=== PATIENT | male | born 1935 | race Caucasian/White ===

== ENCOUNTER 2017-03-16 16:27 | Emergency (ER) | payer OTHER ==
[~2017-03-16] VITALS: Ht 160 cm; Wt 90.7 kg
[2017-03-16] MEDS ORDERED: CAN'T RECALL (16:32)
--- NOTE | 2017-03-16 16:40 | NUR ---
PT CAME IN FOR GENERALIZED WEAKNESS WHILE WALKING FROM A GROCERY. DENIES KO. PT AAOX3. SEEN BY MD FOR EVAL. SAFETY AND COMFORT MEASURES PROVIDED. WILL MONITOR.
[2017-03-16 16:53] LABS: BASOPHILS % (AUTO) 0.4 % (0.0-2.0); EOSINOPHILS # (AUTO) 0.1 /CMM (0.0-0.7); EOSINOPHILS % (AUTO) 0.8 % (0.0-6.0); HEMATOCRIT 46 % (39-51); HEMOGLOBIN 14.9 g/dL (13.5-17.5); LYMPHOCYTES % (AUTO) 22.2 % (20.0-44.0); MEAN CORPUSCULAR HEMOGLOBIN 32 PG (26.0-33.0); MEAN CORPUSCULAR HGB CONC 33 g/dl (31.0-36.0); MEAN CORPUSCULAR VOLUME 99 fL (80-96); MONOCYTES # (AUTO) 0.8 /CMM (0.1-1.30); MONOCYTES % (AUTO) 8.7 % (2.0-12.0); NEUTROPHILS # (AUTO) 5.9 /CMM (1.8-8.9); NEUTROPHILS % (AUTO) 67.9 % (43.0-81.0); PLATELET COUNT (AUTO) 150 /CMM (150-450); RDW COEFFICIENT OF VARIATION 11.8 (11.5-15.0); RED BLOOD CELL COUNT(AUTO) 4.61 MIL/uL (4.5-6.0); WHITE BLOOD COUNT (AUTO) 8.8 K/uL (4.3-11.0)
[2017-03-16] MEDS ORDERED: IV NS 0.9% 1,000 ML BAG IV ONE (17:00)
[2017-03-16 17:03] LABS: CALCIUM, SERUM 8.5 mg/dL (8.5-10.1); CARBON DIOXIDE 25 mmol/L (21-32); CHLORIDE 105 mmol/L (98-107); CREATININE 1.4 mg/dL (0.6-1.3); GLUCOSE 114 mg/dL (74-106); POTASSIUM 3.3 mmol/L (3.5-5.1); SODIUM SERUM 139 mmol/L (136-145); UREA NITROGEN, BLOOD 16 mg/dL (7-18)
[2017-03-16] MEDS ORDERED: IV NS 0.9% 1,000 ML ONE (17:08)
[2017-03-16] MEDS ORDERED: IV SET PRIMARY PUMP SET 1 EA INFUS.SET MC ONE (17:08)
[2017-03-16 17:09] LABS: ALANINE AMINOTRANSFERASE 19 U/L (12-78); ALBUMIN 3.6 g/dL (3.4-5.0); ALKALINE PHOSPHATASE 81 U/L (46-116); ASPARTATE AMINOTRANSFERASE 25 U/L (15-37); BILIRUBIN,DIRECT 0.2 mg/dL (0.0-0.2); BILIRUBIN,TOTAL 0.9 mg/dL (0.2-1.0); TOTAL PROTEIN, SERUM 7.3 g/dL (6.4-8.2)
--- NOTE | 2017-03-16 17:10 | NUR ---
IV ACCESS STARTED. PT MEDICATED ORDERED.
[2017-03-16 17:11] LABS: TROPONIN I < 0.017 ng/mL (0.00-0.056)
--- NOTE | 2017-03-16 18:20 | NUR ---
IV removed. Catheter intact and site benign. Pressure and 4x4 applied to site. No bleeding noted.
--- NOTE | 2017-03-16 18:34 | NUR ---
Patient discharged to home in stable condition. Written and verbal after care instructions given. Patient verbalizes understanding of instruction.
[2017-03-16 18:46] VITALS: BP 127/71
== END 2017-03-16 18:46 | disposition home or self-care (01) ==
LOC: ER 16:28
DX: N28.9 Disorder of kidney and ureter, unspecified (principal); R42 Dizziness and giddiness; E78.00 Pure hypercholesterolemia, unspecified; I10 Essential (primary) hypertension; W18.30XA Fall on same level, unspecified, initial encounter; Y93.89 Activity, other specified; Y92.89 Other specified places as the place of occurrence of the external cause; Y99.8 Other external cause status
CPT/HCPCS: 36415; 71010; 80048; 80076; 84484; 85025; 93005; 96360; 99285; A4606; J7030; Z7610

== ENCOUNTER 2018-08-08 19:45 | Emergency (ER) | payer OTHER ==
[~2018-08-08] VITALS: Ht 172.7 cm; Wt 79.4 kg
[~2018-08-08 19:45] MED LIST: CAN'T RECALL
--- NOTE | 2018-08-08 20:30 | NUR ---
BIB [facility] FOR FLU LIKE SYMPTOMS X 8WEEKS REPORTED BY . PT AAOX2, VSS. DENIES CP, SOB, DIZZINESS, N/V/D, ABD PAIN OR ANY DISCOMFORT @ THIS TIME. PT SEEN & EVAL'D BY DR. MILLAN & WILL CONT TO MONITOR.
[2018-08-08 20:40] LABS: HEMATOCRIT 42 % (39-51); HEMOGLOBIN 14.1 g/dL (13.5-17.5); LYMPHOCYTES % (AUTO) 11.4 % (20.0-44.0); MEAN CORPUSCULAR HGB CONC 34 g/dl (31.0-36.0); MEAN CORPUSCULAR VOLUME 98 fL (80-96); PLATELET COUNT (AUTO) 79 /CMM (150-450); RDW COEFFICIENT OF VARIATION 12.7 (11.5-15.0); RED BLOOD CELL COUNT(AUTO) 4.26 MIL/uL (4.5-6.0); WHITE BLOOD COUNT (AUTO) 13.7 K/uL (4.3-11.0)
[2018-08-08 20:41] LABS: BASOPHILS # (AUTO) 0.3 /CMM (0.0-0.2); BASOPHILS % (AUTO) 2.5 % (0.0-2.0); CALCIUM, SERUM 9.6 mg/dL (8.5-10.1); CARBON DIOXIDE 29 mmol/L (21-32); CHLORIDE 102 mmol/L (98-107); EOSINOPHILS % (AUTO) 0.3 % (0.0-6.0); GLUCOSE 98 mg/dL (74-106); LYMPHOCYTES # (AUTO) 1.6 /CMM (0.8-4.8); MONOCYTES # (AUTO) 1.2 /CMM (0.1-1.30); MONOCYTES % (AUTO) 8.8 % (2.0-12.0); NEUTROPHILS # (AUTO) 10.6 /CMM (1.8-8.9); SODIUM SERUM 136 mmol/L (136-145); UREA NITROGEN, BLOOD 17 mg/dL (7-18)
[2018-08-08 20:44] LABS: INR 1.06 (0.85-1.15)
[2018-08-08 20:48] LABS: TROPONIN I < 0.017 ng/mL (0.00-0.056)
[2018-08-08 20:53] LABS: ALANINE AMINOTRANSFERASE 24 U/L (12-78); ALBUMIN 3.3 g/dL (3.4-5.0); ALKALINE PHOSPHATASE 82 U/L (46-116); ASPARTATE AMINOTRANSFERASE 28 U/L (15-37); B-TYPE NATRIURETIC PEPTIDE 346 PG/ML (0-125); BILIRUBIN,DIRECT 0.2 mg/dL (0.0-0.2); BILIRUBIN,TOTAL 0.8 mg/dL (0.2-1.0)
[2018-08-08 21:24] LABS: TOTAL PROTEIN, SERUM < 2.0 g/dL (6.4-8.2)
[2018-08-08 21:47] LABS: BAND % (MANUAL) 4 % (0.0-5.0); EOSINOPHILS % (MANUAL) 2 % (0-4); LYMPHOCYTES % (MANUAL) 8 % (16-48); MONOCYTES % (MANUAL) 5 % (0-11.0); NEUTROPHILS % (MANUAL) 81 (42-76)
--- NOTE | 2018-08-08 22:00 | NUR ---
URINE COLLECTED VIA I&O CATHETER, PT JOSE ALFREDO WELL. URINE SAMPLE SENT TO LAB.
[2018-08-08 22:13] LABS: APPEARANCE,URINE SL CLOUDY (CLEAR); BILIRUBIN,URINE NEGATIVE (NEGATIVE); BLOOD, URINE 2+ Ery/uL (NEGATIVE); COLOR,URINE YELLOW (YELLOW); KETONES,URINE NEGATIVE (NEGATIVE); LEUKOCYTE ESTERASE ,URINE 2+ (NEGATIVE); NITRITE, URINE POSITIVE (NEGATIVE); PROTEIN,URINE NEGATIVE (NEGATIVE); UGLUCOSE NEGATIVE (NEGATIVE); UROBILINOGEN,URINE 0.2 EU/dL (0.2)
[2018-08-08 22:22] LABS: BACTERIA,URINE Few /HPF (None Seen); RBC,URINE 21-50 /HPF (0-2); SQUAMOUS EPITHELIAL CELL,UR Few /HPF (None Seen)
--- NOTE | 2018-08-08 22:22 | NUR ---
PT ASLEEP, EASILY AWAKEN WITH VERBAL STIMULI. DENIES CP, SOB, DIZZINESS, N/V/D @ THIS TIME. @ BS & WILL CONT TO MONITOR.
--- NOTE | 2018-08-08 22:40 | NUR ---
CALLED [facility] SPOKE WITH DUKE , EXPECTING A CALL BACK FROM A [facility]
[2018-08-08] MEDS ORDERED: CEFTRIAXONE 1GM BAG (ER ONLY) 1 GM/50 ML PIGGYBACK IV ONE (23:00)
[2018-08-08] MEDS ORDERED: CEFTRIAXONE 1 G VIAL ONE (23:14)
--- NOTE | 2018-08-08 23:39 | NUR ---
RECEIVED REPORT FROM MILDRED LIMON FOR [facility] PT APPEARS COMFORTABLE.
--- NOTE | 2018-08-09 00:29 | NUR ---
CALLED LAB FOR PENDING LACTIC ACID. TO BE RESULTED IN 2 MINS.
--- NOTE | 2018-08-09 00:32 | NUR ---
INFORMED DR. MCGUIRE FROM [facility] OF LACTIC ACID RESULT
--- NOTE | 2018-08-09 01:05 | NUR ---
[facility] TRANSPORT TO [facility] DR. Rayna POSADAS [phone] ETA [phone]
--- NOTE | 2018-08-09 01:21 | NUR ---
REPORT GIVEN TO RYDE HONEY JAMES
[2018-08-09 02:00] VITALS: BP 158/73
--- NOTE | 2018-08-09 02:02 | NUR ---
REPORT GIVEN TO EMT FROM [facility] FOR [facility], PT AND PT AWARE OF TRANSFER, VSS, IV INTACT AND PATENT. NO S/S INFECTION OR INFILTRATION NOTED. PT WITH ALL PERSONAL BELONGINGS. PT TO BE TRASNFERRED TO [facility] VIA [employer]. PER [facility] TOOK OVER CARE.
== END 2018-08-09 02:08 | disposition short-term general hospital (02) ==
LOC: ER 19:50
DX: N39.0 Urinary tract infection, site not specified (principal); R53.1 Weakness; D72.829 Elevated white blood cell count, unspecified; D69.6 Thrombocytopenia, unspecified; I44.0 Atrioventricular block, first degree; R41.0 Disorientation, unspecified; R26.9 Unspecified abnormalities of gait and mobility; R29.6 Repeated falls; I11.0 Hypertensive heart disease with heart failure; I50.9 Heart failure, unspecified; R60.0 Localized edema; R79.89 Other specified abnormal findings of blood chemistry; G31.83 Neurocognitive disorder with Lewy bodies; F02.80 Dementia in other diseases classified elsewhere, unspecified severity, without behavioral disturbance, psychotic disturbance, mood disturbance, and anxiety; E78.00 Pure hypercholesterolemia, unspecified
CPT/HCPCS: 36415; 70450; 71045; 80048; 80076; 81001; 83605; 83880; 84484; 85025; 85730; 87077; 87086; 87186; 93005; 96365; 99285; A4606; J0696; J7060; 81000-TC; Z7610

== ENCOUNTER 2019-10-08 20:53 | Emergency (ER) | payer OTHER ==
[~2019-10-08] VITALS: Ht 170.2 cm; Wt 84.8 kg
--- NOTE | 2019-10-08 21:13 | NUR ---
C/O RECTAL BLEEDING, N/V, FEVER, COUGH. AAOX1. VSS. DENIES CP, SOB, DIZZINESS @ THIS TIME. PLACED ON LINEN MANAGER, SR. AWAITING EVAL BY SUZY/GUANAKITO. WILL CONT TO MONITOR.
[2019-10-08 21:45] LABS: BASOPHILS % (AUTO) 0.1 % (0.0-2.0); HEMATOCRIT 48 % (39-51); HEMOGLOBIN 15.7 g/dL (13.5-17.5); LYMPHOCYTES # (AUTO) 0.3 /CMM (0.8-4.8); LYMPHOCYTES % (AUTO) 1.1 % (20.0-44.0); MEAN CORPUSCULAR HGB CONC 33 g/dl (31.0-36.0); MEAN CORPUSCULAR VOLUME 101 fL (80-96); MONOCYTES # (AUTO) 1.2 /CMM (0.1-1.30); MONOCYTES % (AUTO) 4.9 % (2.0-12.0); NEUTROPHILS # (AUTO) 23.9 /CMM (1.8-8.9); NEUTROPHILS % (AUTO) 93.9 % (43.0-81.0); PLATELET COUNT (AUTO) 162 /CMM (150-450); WHITE BLOOD COUNT (AUTO) 25.4 K/uL (4.3-11.0)
[2019-10-08 22:03] LABS: CALCIUM, SERUM 8.9 mg/dL (8.5-10.1); CARBON DIOXIDE 28 mmol/L (21-32); CHLORIDE 103 mmol/L (98-107); CREATININE 1.3 mg/dL (0.6-1.3); GLUCOSE 136 mg/dL (74-106); POTASSIUM 3.9 mmol/L (3.5-5.1); SODIUM SERUM 139 mmol/L (136-145); UREA NITROGEN, BLOOD 22 mg/dL (7-18)
[2019-10-08 22:09] LABS: ALANINE AMINOTRANSFERASE 25 U/L (12-78); ALBUMIN 3.4 g/dL (3.4-5.0); ALKALINE PHOSPHATASE 107 U/L (46-116); ASPARTATE AMINOTRANSFERASE 43 U/L (15-37); BILIRUBIN,DIRECT 0.2 mg/dL (0.0-0.2); BILIRUBIN,TOTAL 0.8 mg/dL (0.2-1.0); TOTAL PROTEIN, SERUM 7.6 g/dL (6.4-8.2)
--- NOTE | 2019-10-08 22:17 | NUR ---
LACTIC ACID 3.6
[2019-10-08 22:52] LABS: APPEARANCE,URINE Clear (CLEAR); BILIRUBIN,URINE Negative (NEGATIVE); BLOOD, URINE Negative Ery/uL (NEGATIVE); COLOR,URINE Yellow (YELLOW); KETONES,URINE Negative (NEGATIVE); LEUKOCYTE ESTERASE ,URINE Negative (NEGATIVE); NITRITE, URINE Negative (NEGATIVE); PROTEIN,URINE 30 mg/dl (NEGATIVE); UGLUCOSE Negative (NEGATIVE); UROBILINOGEN,URINE 0.2 EU/dL (0.2)
[2019-10-08 23:20] LABS: BACTERIA,URINE Few /HPF (None Seen); RBC,URINE 0-2 /HPF (0-2); SQUAMOUS EPITHELIAL CELL,UR Few /HPF (None Seen); WBC,URINE 21-50 /HPF (0-3)
--- NOTE | 2019-10-09 00:21 | NUR ---
[facility] CALLED
--- NOTE | 2019-10-09 00:32 | NUR ---
HONEY CHILDRESS SPOKE TO FINLAYSON LILLI CHILDRESS.
[2019-10-09] MEDS: FLAGYL/NS RTU 500 MG/100 ML PIGGYBACK IV ONE (01:45)
--- NOTE | 2019-10-09 02:11 | NUR ---
followed up w/[facility] rutherfordp. awaiting call back
[2019-10-09] MEDS ORDERED: CIPROFLOXACIN IV RTU 200 ML IV ONE (02:31)
[2019-10-09] MEDS ORDERED: METRONIDAZOLE 500MG/ NS 100ML 100 ML IV ONE (02:31)
[2019-10-09] MEDS: IV NS 0.9% 1,000 ML BAG IV ONE (03:01)
--- NOTE | 2019-10-09 03:12 | NUR ---
followed up with [facility]. awaiting callback.
[2019-10-09] MEDS: CIPROFLOXACIN IV RTU 400 MG in PREMIX 1 EA IV SCH (03:15)
--- NOTE | 2019-10-09 04:29 | NUR ---
PT WILL BE GOING TO [facility], ACCEPTING MR SILVA. NO ROOM NUMBER RECEIVED AT THIS TIME.
--- NOTE | 2019-10-09 04:52 | NUR ---
TRANSFER INFO RECEIVED FROM [facility] [employer] PT WILL BE GOING TO [facility] ROOM # [id number]. ACCEPTING MD SILVA PHONE NUMBER FOR REPORT ALS TRANSPORT ETA [phone].
--- NOTE | 2019-10-09 04:52 | NUR ---
Uziel martinez in EDM - 10/09/19 at 0537 by [facility] TRANSFER INFO RECEIVED FROM [facility] [employer] PT WILL BE GOING TO [facility]. ACCEPTING MD SILVA PHONE NUMBER FOR REPORT ALS TRANSPORT ETA [phone].
--- NOTE | 2019-10-09 05:53 | NUR ---
REPORT GIVEN TO TIMOTHY LEVY.
[2019-10-09 06:06] VITALS: BP 140/71
== END 2019-10-09 06:07 | disposition short-term general hospital (02) ==
LOC: ER 20:57
DX: D72.829 Elevated white blood cell count, unspecified (principal); K52.9 Noninfective gastroenteritis and colitis, unspecified; I10 Essential (primary) hypertension; E78.00 Pure hypercholesterolemia, unspecified; G20 Parkinson's disease; F02.80 Dementia in other diseases classified elsewhere, unspecified severity, without behavioral disturbance, psychotic disturbance, mood disturbance, and anxiety; Z87.440 Personal history of urinary (tract) infections; Z95.0 Presence of cardiac pacemaker
CPT/HCPCS: 36415; 71045; 74176; 80048; 80076; 81001; 83605; 83880; 84145; 84484; 85025; 85730; 86850; 87040 ×2; 87086; 93005; 96365; 96367; 99285; J0744; J3490; J7030; J7040; J7050; 81000-TC; A4216

== ENCOUNTER 2020-03-30 19:51 | Emergency (ER) | payer OTHER, MEDICAID ==
[~2020-03-30] VITALS: Ht 167.6 cm; Wt 81.6 kg
--- NOTE | 2020-03-30 19:58 | NUR ---
BIB [facility] FOR EVALUATION OF SYNCOPAL EPISODE AT HOME. NO FALL. HYPOTENSIVE AT HOME. REC'D NORVASC 5MG PO AT 1700; pt awake, alert, -sob, nad noted, placed on indira spain penidng md eval
[2020-03-30 20:20] LABS: BASOPHILS # (AUTO) 0.1 /CMM (0.0-0.2); BASOPHILS % (AUTO) 0.7 % (0.0-2.0); EOSINOPHILS % (AUTO) 0.7 % (0.0-6.0); HEMATOCRIT 40 % (39-51); HEMOGLOBIN 13.2 g/dL (13.5-17.5); LYMPHOCYTES # (AUTO) 1.4 /CMM (0.8-4.8); LYMPHOCYTES % (AUTO) 9.9 % (20.0-44.0); MEAN CORPUSCULAR HGB CONC 33 g/dl (31.0-36.0); MEAN CORPUSCULAR VOLUME 101 fL (80-96); MONOCYTES # (AUTO) 1.2 /CMM (0.1-1.30); MONOCYTES % (AUTO) 8.9 % (2.0-12.0); NEUTROPHILS # (AUTO) 11.1 /CMM (1.8-8.9); NEUTROPHILS % (AUTO) 79.8 % (43.0-81.0); PLATELET COUNT (AUTO) 229 /CMM (150-450); RED BLOOD CELL COUNT(AUTO) 3.96 MIL/uL (4.5-6.0); WHITE BLOOD COUNT (AUTO) 13.9 K/uL (4.3-11.0)
[2020-03-30 20:40] LABS: CALCIUM, SERUM 8.5 mg/dL (8.5-10.1); CARBON DIOXIDE 28 mmol/L (21-32); CHLORIDE 99 mmol/L (98-107); CREATININE 1.3 mg/dL (0.6-1.3); GLUCOSE 114 mg/dL (74-106); POTASSIUM 4.1 mmol/L (3.5-5.1); SODIUM SERUM 135 mmol/L (136-145); UREA NITROGEN, BLOOD 12 mg/dL (7-18)
--- NOTE | 2020-03-30 20:45 | NUR ---
CALLED [facility]
[2020-03-30 20:46] LABS: ALANINE AMINOTRANSFERASE 11 U/L (12-78); ALBUMIN 2.8 g/dL (3.4-5.0); ALKALINE PHOSPHATASE 107 U/L (46-116); ASPARTATE AMINOTRANSFERASE 23 U/L (15-37); BILIRUBIN,DIRECT 0.2 mg/dL (0.0-0.2); BILIRUBIN,TOTAL 0.6 mg/dL (0.2-1.0); TOTAL PROTEIN, SERUM 7.2 g/dL (6.4-8.2)
--- NOTE | 2020-03-30 21:00 | NUR ---
DR PAINTING SPEAKING WITH [facility] CHILDRESS
--- NOTE | 2020-03-30 21:01 | NUR ---
PT WILL BE TRANSFERRED PENDING LOCATION
--- NOTE | 2020-03-30 22:46 | NUR ---
[facility]
--- NOTE | 2020-03-31 00:21 | NUR ---
TRANSFER INFO: PT GOT ACCEPTED AT [facility] UNDER DR SEGURA # FOR REPORT: [phone] ALS TRANSPO ETA: [phone]
--- NOTE | 2020-03-31 00:30 | NUR ---
report given to jaycee murrell at [facility]
--- NOTE | 2020-03-31 00:57 | NUR ---
REPORT GIVEN TO [facility]
[2020-03-31 01:00] VITALS: BP 136/62
--- NOTE | 2020-03-31 01:09 | NUR ---
pt tranpsorted to [facility]; poa aware, left in stable condition
== END 2020-03-31 01:10 | disposition short-term general hospital (02) ==
LOC: ER 19:53
DX: R55 Syncope and collapse (principal); I44.7 Left bundle-branch block, unspecified; G30.9 Alzheimer's disease, unspecified; G20 Parkinson's disease; F02.80 Dementia in other diseases classified elsewhere, unspecified severity, without behavioral disturbance, psychotic disturbance, mood disturbance, and anxiety; I10 Essential (primary) hypertension; E78.5 Hyperlipidemia, unspecified; Z95.0 Presence of cardiac pacemaker; E78.00 Pure hypercholesterolemia, unspecified; Z90.49 Acquired absence of other specified parts of digestive tract
CPT/HCPCS: 36415; 71045-TC; 80048-TC; 80076-TC; 84484-TC; 85025-TC